=== PATIENT | male | born 1945 | race Hispanic/Latino ===

== ENCOUNTER → 2021-06-26 | Outpatient (CLI) | payer OTHER, MEDICARE ==
[~2021-06-26] MED LIST: ATEN100T PO; CETI10TA57 PO; CLON1PAT PO; DOCU-282 PO; IOHEXOL-350 75 ML VIAL IV ONE; METF-445 PO; SIME125C81 PO; SPIR25TA PO; VERA360C2 PO
== END | disposition home or self-care (01) ==
LOC: RAH 09:19
PROVIDERS: ATTEND Internal Medicine Cardiovascular Disease
DX: J98.59 Other diseases of mediastinum, not elsewhere classified (principal); K76.89 Other specified diseases of liver; I25.10 Atherosclerotic heart disease of native coronary artery without angina pectoris
CPT/HCPCS: 71270; Q9967

== ENCOUNTER → 2021-07-24 | Outpatient (CLI) | payer OTHER, MEDICARE ==
[~2021-07-24] MED LIST changes: -IOHEXOL-350 75 ML VIAL IV ONE
== END | disposition home or self-care (01) ==
LOC: SHCH 08:59
PROVIDERS: ATTEND Internal Medicine Cardiovascular Disease
DX: I11.9 Hypertensive heart disease without heart failure (principal); I51.7 Cardiomegaly; R94.31 Abnormal electrocardiogram [ECG] [EKG]; E11.9 Type 2 diabetes mellitus without complications; E78.5 Hyperlipidemia, unspecified; I48.91 Unspecified atrial fibrillation; R55 Syncope and collapse
CPT/HCPCS: 93306